=== PATIENT | male | born 1960 | race Caucasian/White ===

== ENCOUNTER 2018-09-18 09:59 | Emergency (ER) | payer OTHER ==
[~2018-09-18] VITALS: Ht 172.7 cm; Wt 64.0 kg
[2018-09-18 10:20] VITALS: BP 116/81
--- NOTE | 2018-09-18 10:32 | NUR ---
Right hand swelling since last night. Injured while moving furniture. Pt reports no improvement with ice and elevation. Wrist hand and fingers swollen. Capillary refill sluggish.
== END 2018-09-18 11:56 | disposition home or self-care (01) ==
LOC: ED 11:45
DX: S52.571A Other intraarticular fracture of lower end of right radius, initial encounter for closed fracture (principal); F17.200 Nicotine dependence, unspecified, uncomplicated; X58.XXXA Exposure to other specified factors, initial encounter; Y93.89 Activity, other specified; Y92.009 Unspecified place in unspecified non-institutional (private) residence as the place of occurrence of the external cause; Y99.8 Other external cause status
CPT/HCPCS: 29105; 99283